=== PATIENT | male | born 1985 | race Caucasian/White ===

== ENCOUNTER 2025-04-26 06:49 | Emergency (ER) | payer MEDICAID, OTHER ==
[~2025-04-26] VITALS: Ht 172.7 cm; Wt 68.0 kg
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
[2025-04-26 07:30] VITALS: PULSE 89; RESP 16; O2SAT 97
[2025-04-26] MEDS: SODIUM CHLORIDE 0.9% 1,000 ML IVB ONE (07:30)
[2025-04-26 08:18] LABS: Potassium 4.4 mmol/L (3.5-5.1)
[2025-04-26 08:19] LABS: Anion Gap 12 (5-15); Carbon Dioxide 24 mmol/L (20-31)
[2025-04-26 08:20] LABS: Calcium 10.0 mg/dL (8.7-10.4)
[2025-04-26 08:24] LABS: BUN/Creatinine Ratio 7.1 (10.0-20.0)
[2025-04-26 08:26] LABS: Blood Urea Nitrogen 6 mg/dL (9-23); Chloride 89 mmol/L (98-107); Glucose 116 mg/dL (74-106); Sodium 125 mmol/L (136-145)
--- NOTE | 2025-04-26 08:52 | DVH ---
INDICATION: pain TECHNIQUE: 4 views of the cervical spine were obtained. COMPARISON: None FINDINGS: The cervical spine is visualized from C1-C7. There is loss of the normal cervical lordosis which can be positional. No fractures or subluxations are identified. Multilevel degenerative changes of the spine Alignment appears unremarkable. Prevertebral soft tissues are within normal limits. IMPRESSION: No acute fracture or subluxation
[2025-04-26 09:37] VITALS: BP 107/77; PULSE 90; RESP 12; TEMP 97.6; O2SAT 97
== END 2025-04-26 10:24 | disposition home or self-care (01) ==
LOC: ER 06:49 → EDBD 06:49 → ER 10:24
DX: E86.0 Dehydration (principal); E11.9 Type 2 diabetes mellitus without complications; Z79.899 Other long term (current) drug therapy
CPT/HCPCS: 36415; 72040; 80048; 80320; 96360; 99284; J7030

== ENCOUNTER 2025-05-18 03:11 | Emergency (ER) | payer MEDICAID ==
[~2025-05-18] VITALS: Ht 170.2 cm; Wt 68.2 kg
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
[2025-05-18 03:44] LABS: Hematocrit 38.7 % (41.0-53.0); Hemoglobin 13.4 g/dL (13.5-17.5); Mean Corpuscular Hemoglobin 30.9 pg (28.0-32.0); Mean Corpuscular Volume 89.5 fL (80.0-100.0); Nucleated Red Blood Cells % 0.1 %
[2025-05-18 03:56] LABS: Chloride 100 mmol/L (98-107); Potassium 4.4 mmol/L (3.5-5.1)
[2025-05-18 03:57] LABS: Anion Gap 7 (5-15); Carbon Dioxide 27 mmol/L (20-31)
[2025-05-18 03:58] LABS: Calcium 9.5 mg/dL (8.7-10.4)
[2025-05-18 04:03] LABS: BUN/Creatinine Ratio 9.1 (10.0-20.0)
[2025-05-18 04:08] LABS: Blood Urea Nitrogen 8 mg/dL (9-23); Glucose 133 mg/dL (74-106); Sodium 134 mmol/L (136-145)
[2025-05-18 05:04] VITALS: BP 132/76; PULSE 76; RESP 18; TEMP 98.2; O2SAT 98
== END 2025-05-18 05:11 | disposition home or self-care (01) ==
LOC: ER 03:11 → EDBD 03:11 → ER 05:11
DX: E16.2 Hypoglycemia, unspecified (principal); Z79.899 Other long term (current) drug therapy
CPT/HCPCS: 36415; 80048; 82947; 85025